=== PATIENT | female | born 1965 | race Caucasian/White ===

== ENCOUNTER 2018-12-19 11:20 | Emergency (ER) | payer OTHER ==
[~2018-12-19] VITALS: Ht 162.6 cm; Wt 49.4 kg
[2018-12-19 11:42] VITALS: BP 117/83
--- NOTE | 2018-12-19 12:28 | Emergency Room Report ---
History of Present Illness General Chief Complaint: Upper Respiratory Illness Source: Patient Present Illness HPI 53-year-old female presents to the emergency department complaining of persistent productive cough off and on since August. Patient denies subjective fevers or chills she denies sore throat, ear pain, neck pain/ stiffness, headache or significant past medical history. Patient reports she is a daily smoker she denies history of asthma except for one time several years ago. Patient denies history of immunocompromise and denies recent travel or ill contacts with similar symptoms. Patient reports that she is coughing so persistently that she is now having 6/10 in severity pain in her rib cage during episodes of coughing. Patient states she's been trying [id number] medication for cholesterol extremities without relief. Denies CP, Palpitations, LOC, AMS, dizziness, Changes in Vision, Sensation, paresthesias, or a sudden severe headache. Allergies: Coded Allergies: IODINE (Verified Allergy, Unknown, 12/19/18) Patient History Past Medical History: see triage record Past Surgical History: none Pertinent Family History: none Social History: Reports: smoking Reviewed Nursing Documentation: PMH: Agreed; PSxH: Agreed Nursing Documentation-PMH Past Medical History: No Stated History Review of Systems All Other Systems: negative except mentioned in HPI Physical Exam Vital Signs Date Time Temp Pulse Resp B/P (MAP) Pulse Ox O2 Delivery O2 Flow Rate FiO2 12/19/18 11:32 98.4 96 18 117/83 91 Room Air Sp02 EP Interpretation: reviewed, normal General Appearance: no apparent distress, alert, GCS 15, non-toxic Head: normocephalic, atraumatic Eyes: bilateral eye normal inspection, bilateral eye PERRL ENT: hearing grossly normal, normal voice Neck: full range of motion Respiratory: chest non-tender, lungs clear, normal breath sounds, no respiratory distress, speaking full sentences, wheezing, inspiration Cardiovascular #1: regular rate, rhythm, no edema, normal capillary refill Musculoskeletal: back normal, gait/station normal, normal range of motion, non- tender Neurologic: alert, oriented x3, responsive, motor strength/tone normal, sensory intact, speech normal, grossly normal Psychiatric: judgement/insight normal Skin: normal color, no rash, warm/dry, well hydrated Lymphatic: no adenopathy Medical Decision Making PA Attestation Dr. Talbert is my supervising physician whom pt. management has been discussed with. Diagnostic Impression: Primary Impression: Atypical pneumonia ER Course 53-year-old female presents to the emergency department complaining of persistent productive cough off and on since August. Patient denies subjective fevers or chills she denies sore throat, ear pain, neck pain/ stiffness, headache or significant past medical history. Patient reports she is a daily smoker she denies history of asthma except for one time several years ago. Patient denies history of immunocompromise and denies recent travel or ill contacts with similar symptoms. Patient reports that she is coughing so persistently that she is now having 6/10 in severity pain in her rib cage during episodes of coughing. Patient states she's been trying [id number] medication for cholesterol extremities without relief. Denies CP, Palpitations, LOC, AMS, dizziness, Changes in Vision, Sensation, paresthesias, or a sudden severe headache. Ddx considered but are not limited to URI, pneumonia, PE, strep pharyngitis, meningitis. Vital signs: Pt.is afebrile VS are WNL H&PE are most consistent with bronchitis-- for over 8 weeks and is a daily smoker. ORDERS: none required at this time, the diagnosis is clinical ED INTERVENTIONS: --Duo Nebs x 2 -Prednisone 60mg PO -I do not identify an emergent condition at this time. With current presentation , pt. is stable for close outpatient follow up and conservative treatment. D/ w pt. to return promptly to ED with worsening or new symptoms.- Pt. verbalizes' understanding and agreement with proposed treatment plan.proposed treatment plan. --Highly suspect COPD in this pt. and she was encouraged to follow up with pulmonology. DISCHARGE: At this time pt. is stable for d/c to home. Will provide printed patient care instructions, and any necessary prescriptions. Care plan and follow up instructions have been discussed with the patient prior to discharge. Last Vital Signs Date Time Temp Pulse Resp B/P (MAP) Pulse Ox O2 Delivery O2 Flow Rate FiO2 12/19/18 11:42 96 18 Room Air 12/19/18 11:42 98.4 117/83 95 Status: improved Disposition: HOME, SELF-CARE Condition: Stable Scripts Levofloxacin* (LEVAQUIN*) 500 Mg Tablet 500 MG ORAL DAILY for 7 Days, #7 TAB Prov: Lisa Medellin 12/19/18 Prednisone* (PREDNISONE*) 20 Mg Tablet 40 MG ORAL DAILY for 5 Days, #10 TAB Prov: Lisa Medellin 12/19/18 Codeine/Promethazine Hcl* (PROMETHAZINE-CODEINE SYRUP*) 118 Ml Syrup 5 ML ORAL Q6H PRN for For Cough, #120 ML 0 Refills Prov: Lisa Medellin 12/19/18 Albuterol Sulfate* (ALBUTEROL SULFATE MDI*) 8.5 Gm Hfa.aer.ad 2 PUFF INH Q6H, #1 INH 0 Refills Prov: Lisa Medellin 12/19/18 Patient Instructions: Upper Respiratory Infection, Adult Additional Instructions: Take medications as directed. Follow up with a Primary Care Provider in 3-5 days, even if your symptoms have resolved. --Please review list of primary care clinics, if you do not already have a primary care provider Return sooner to ED if new symptoms occur, or current symptoms become worse. Do not drink alcohol, drive, or operate heavy machinery while taking Cough Syrup as this may cause drowsiness. - Please note that this Emergency Department Report was dictated using [email or web address] research technology software, occasionally this can lead to erroneous entry secondary to interpretation by the dictation equipment. Lisa Medellin Dec 19, 2018 12:28
[2018-12-19] MEDS ORDERED: Albuterol/Ipratropium 3ml neb HHN ONE ×2 (12:30)
[2018-12-19] MEDS ORDERED: PROMETHAZINE-C118 M1 ORAL (13:26)
[2018-12-19] MEDS ORDERED: PREDNISONE20 MG ORAL (13:26)
[2018-12-19] MEDS ORDERED: LEVAQUIN500 MG ORAL (13:26)
[2018-12-19] MEDS ORDERED: ALBUTEROL SULF8.5 GM INH (13:26)
[2018-12-19 13:35] VITALS: BP 117/83
== END 2018-12-19 13:37 | disposition home or self-care (01) ==
LOC: EMR 12:25
DX: J18.9 Pneumonia, unspecified organism (principal)
CPT/HCPCS: 94640; 94664; 99284; J7512; J7620

== ENCOUNTER 2018-12-21 21:19 | Emergency (ER) | payer OTHER ==
[~2018-12-21] VITALS: Ht 162.6 cm; Wt 50.3 kg
[~2018-12-21 21:19] MED LIST: ALBUTEROL SULF8.5 GM INH; LEVAQUIN500 MG ORAL; PREDNISONE20 MG ORAL; PROMETHAZINE-C118 M1 ORAL
[2018-12-21] MEDS ORDERED: NKM (21:29)
[2018-12-21 21:33] VITALS: BP 131/88
[2018-12-21] MEDS ORDERED: GUAIFENESIN-CO118 M1 ORAL (21:50)
--- NOTE | 2018-12-21 21:52 | Emergency Room Report ---
History of Present Illness General Chief Complaint: Medication Refill Source: Patient Present Illness HPI This is a 53-year-old female with no past mental history. She does smokes about a pack a day. She presents with chief complaint of coughing and and increasing sputum. She was here couple days ago. She's arty started antibiotics and using an element prednisone. She could not get the final with codeine because there was a dial printer shortage. She asking for chest x-ray or CT scan. She worried about pneumonia. She denies any fever chills but no nausea no vomiting. She said she had 3 colds and cough symptoms since August. Allergies: Coded Allergies: IODINE (Verified Allergy, Unknown, 12/19/18) Patient History Past Medical History: see triage record, old chart reviewed Past Surgical History: other Pertinent Family History: none Social History: Reports: smoking Last Menstrual Period: 2015 Now: No Immunizations: other Reviewed Nursing Documentation: PMH: Agreed; PSxH: Agreed Nursing Documentation-PMH Past Medical History: No History, Except For Hx Asthma: Yes Review of Systems Eye: Denies: eye pain, blurred vision ENT: Denies: ear pain, nose congestion, throat swelling Respiratory: Reports: cough, sputum; Denies: shortness of breath Cardiovascular: Denies: chest pain, palpitations Gastrointestinal: Denies: abdominal pain, diarrhea, nausea, vomiting Musculoskeletal: Denies: back pain, joint pain Skin: Denies: rash Neurological: Denies: headache, numbness Endocrine: Denies: increased thirst, increased urine Hematologic/Lymphatic: Denies: easy bruising All Other Systems: negative except mentioned in HPI Physical Exam Vital Signs Date Time Temp Pulse Resp B/P (MAP) Pulse Ox O2 Delivery O2 Flow Rate FiO2 12/21/18 21:25 98.4 86 12 131/88 92 Room Air vitals unremarkable Sp02 EP Interpretation: reviewed, normal General Appearance: well appearing, no apparent distress, alert Head: normocephalic, atraumatic Eyes: bilateral eye PERRL, bilateral eye EOMI ENT: hearing grossly normal, normal pharynx Neck: full range of motion, supple, no meningismus Respiratory: chest non-tender, lungs clear, wheezing - Slight expiratory wheezing Cardiovascular #1: regular rate, rhythm, no murmur Gastrointestinal: normal bowel sounds, non tender, no mass, no organomegaly, no bruit, non-distended Musculoskeletal: back normal, gait/station normal, normal range of motion Psychiatric: mood/affect normal Skin: warm/dry Medical Decision Making Diagnostic Impression: Primary Impression: COPD with exacerbation ER Course Patient symptoms consistent with COPD exacerbation and/or atypical pneumonia. She is in no respiratory distress. I see no evidence of ACS, PE, dissection to name a few. We'll discharge home. I told her to use inhaler more regularly. Chest X-Ray Diagnostic Results Chest X-Ray Diagnostic Results : Chest X-Ray Ordered: Yes # of Views/Limited/Complete: 1 View Indication: Shortness of Breath EP Interpretation: Yes Interpretation: no consolidation, no effusion, no pneumothorax, no acute cardiopulmonary disease, other - Hyperinflation Impression: Other - copd Electronically Signed by: Genaro Mcqueen MD Last Vital Signs Date Time Temp Pulse Resp B/P (MAP) Pulse Ox O2 Delivery O2 Flow Rate FiO2 12/21/18 21:33 98.4 78 12 131/88 92 Room Air Status: unchanged Disposition: HOME, SELF-CARE Condition: Stable Scripts Guaifenesin/Codeine Phos* (ROBITUSSIN AC*) 118 Ml Liquid 5 ML ORAL Q6H PRN for For Cough, #118 ML 0 Refills Prov: Genaro Mcqueen MD 12/21/18 Additional Instructions: Using inhaler more regularly. Use every 4 hours as needed. Continue with your antibiotics. Follow-up with your doctor in 7 days. Return if symptom worsen. Genaro Mcqueen MD Dec 21, 2018 21:52
[2018-12-21 22:03] VITALS: BP 131/88
--- NOTE | 2018-12-21 22:16 | Diagnostic Imaging Report ---
EXAM: XR Chest, 1 View CLINICAL HISTORY: COUGH TECHNIQUE: Frontal view of the chest. COMPARISON: No relevant prior studies available. FINDINGS: Lungs: Unremarkable. No consolidation. Pleural space: Unremarkable. No pneumothorax. Heart: Unremarkable. No cardiomegaly. Mediastinum: Unremarkable. Bones/joints: Unremarkable. IMPRESSION: Normal chest x-ray.
== END 2018-12-21 22:03 | disposition home or self-care (01) ==
LOC: EMR 21:33
DX: J44.1 Chronic obstructive pulmonary disease with (acute) exacerbation (principal); Z91.041 Radiographic dye allergy status; F17.210 Nicotine dependence, cigarettes, uncomplicated
CPT/HCPCS: 71045; 99283